=== PATIENT | female | born 1960 | race Caucasian/White ===

== ENCOUNTER 2016-10-17 09:30 | Inpatient (IN) ==
[2016-10-17 10:34] LABS: BILIRUBIN URINE NEGATIVE (NEGATIVE); BLOOD URINE NEGATIVE (NEGATIVE); CLARITY CLEAR (CLEAR); COLOR YELLOW; GLUCOSE URINE NEGATIVE (NEGATIVE); LEUKOCYTES URINE 1+ (NEGATIVE); NITRITE URINE NEGATIVE (NEGATIVE); UROBILINOGEN URINE NORMAL
[2016-10-17 10:34] LABS: MANUAL DIFF NEEDED? NO
[2016-10-17 10:35] LABS: BASO% 0.2 % (0.0-0.8); EOS% 0.7 % (0.0-10.0); HEMATOCRIT 46.1 % (37.0-47.0); HEMOGLOBIN 15.9 g/dL (12.0-16.0); IMM GRAN# 0.05 X1000 (0.0-0.04); IMM GRAN% 0.3 % (0.0-0.5); LYMPH# 1.83 X1000 (1.2-3.4); LYMPH% 12.1 % (20.5-51.1); MCH 30.2 PG (27-31); MCHC 34.5 g/dL (33-37); MCV 87.6 FL (81-99); MONO# 1.27 X1000 (0.11-0.59); MONO% 8.4 % (1.7-9.3); MPV 10.3 FL (7.4-10.4); NEUT% 78.3 % (42.2-75.2); PLT 263 X1000 (130-400); RBC 5.26 XMIL (4.2-5.4)
[2016-10-17 10:43] LABS: URINE CULTURE PL NEEDED? YES; URINE EPITHELIAL CELLS <10 /HPF (<10); URINE SOURCE CLEAN CATCH; URINE WBC <10 /HPF (<10)
[2016-10-17 11:01] LABS: AGAP 12; ALBUMIN 4.7 g/dL (3.5-5.0); ALKALINE PHOSPHATASE 128 U/L (32-104); BUN 13 mg/dL (8-22); CALCIUM 10.2 mg/dL (8.8-10.2); CHLORIDE 99 mmol/L (98-107); COSMO 281; GOT 13 U/L (10-30); GPT 15 U/L (10-36); LIPASE 17 U/L (13-60); SODIUM 141 mmol/L (136-145); TCO2 30 mmol/L (25-35); TOTAL PROTEIN 6.9 g/dL (6.3-8.3)
--- NOTE | 2016-10-17 11:32 | Diag Imaging Result Doc PS360 ---
EXAM: FLAT/UPRIGHT ABD/1 VIEW CHEST HISTORY: abd pain TECHNIQUE: Four views COMPARISON: 09/26/2016 FINDINGS: The lungs are well expanded. No cardiomegaly. No pneumonia. No free air beneath the diaphragm. There are air distended loops of small bowel in the mid abdomen. Air-fluid levels are present. Stool is found in the colon. No organomegaly. Mild scoliosis. IMPRESSION: Early or partial small bowel obstruction. Electronically signed by Kvng Bradley 10/17/2016 11:29 AM
[2016-10-17] MEDS ORDERED: PHENERGAN IV ONE (11:50)
[2016-10-17] MEDS ORDERED: SODIUM CHLORIDE 0.9% INJ ONE (11:50)
[2016-10-17] MEDS ORDERED: MORPHINE IV ONE (11:50)
--- NOTE | 2016-10-17 13:01 | Diag Imaging Result Doc PS360 ---
EXAM: CT ABD/PELVIS W/ IV CONT ONLY HISTORY: SBO TECHNIQUE: COMPARISON: 07/02/2013 FINDINGS: There is fatty infiltration of the liver. Normal spleen and pancreas. No calcified gallstones or adjacent inflammation. Enlarged right adrenal gland measuring 2.0 x 3.4 cm. This is unchanged from the prior study. Enlarged left adrenal gland measures 1.8 x 2.7 cm and is also unchanged. Normal enhancement of the kidneys. No hydronephrosis. There are multiple air and fluid distended small bowel loops in the mid abdomen. The terminal ileum is not distended. Normal appendix. No abscess. There are scattered diverticula. Urinary bladder is moderately distended and appears normal. There is a moderate amount of free fluid within the pelvis. The uterus is been removed. No pelvic mass. There are small mesenteric lymph nodes. IMPRESSION: 1.Early or partial small bowel obstruction 2.Fatty infiltration of the liver 3.Stable enlarged adrenal glands 4.Diverticulosis 5.Hysterectomy. Free fluid in the pelvis. Electronically signed by Kvng Bradley 10/17/2016 12:59 PM
[2016-10-17] MEDS ORDERED: NICODERM PATCH ONE (13:18)
[2016-10-17] MEDS ORDERED: NICODERM PATCH TD ONE (13:18)
[2016-10-17] MEDS ORDERED: ZOFRAN IV PRN ×2 (14:04→17:04)
[2016-10-17] MEDS ORDERED: MORPHINE IV PRN (14:04)
[2016-10-17] MEDS ORDERED: TYLENOL PO PRN (14:04)
--- NOTE | 2016-10-17 14:28 | CONSULTATION ---
DATE OF CONSULTATION: 10/17/2016 REQUESTING PHYSICIANS: Emergency Department. REASON FOR CONSULTATION: Consult concerning partial small bowel obstruction. HISTORY OF PRESENT ILLNESS: A 56-year-old, female presenting to the emergency department with complaints of generalized abdominal pain x10 hours. She states she has never had pain like this before. Upon further questioning, she has had previous diagnosis of a hiatal hernia but no other problems besides chronic constipation. She has been seen by Dr. Choudhary and had her last colonoscopy in 2014 which by report from the patient was essentially uneventful. She denies any kind of nausea and had a small bowel movement this morning, but she said she has had to take laxatives every night to have a bowel movement. She says her pain is much better since she was admitted to the emergency department and started with IV fluids and pain medicine. It is not specifically tender this morning. She denies camping, drinking out of well water or any new diets, any abnormal food intake or sick people interaction. PAST MEDICAL HISTORY: Diabetes, hypertension, gastric ulcer. PAST SURGICAL HISTORY: Previous melanoma removal, hysterectomy, tonsillectomy. CURRENT MEDICATIONS: 1. Gabapentin. 2. Insulin. Remainder medications reviewed. ALLERGIES: None. SOCIAL HISTORY: Patient is a current smoker. FAMILY HISTORY: Reviewed and noncontributory. REVIEW OF SYSTEMS: A full 10-point review of systems obtained, negative as specified in HPI. PHYSICAL EXAMINATION: Vital Signs: Patient is currently afebrile. Her vital signs are stable. She is mildly tachycardic at 105 reported. General: No acute distress. Resting comfortably. HEENT: Normocephalic, atraumatic. Pupils equal, round, reactive to light. Mucous membranes moist. Oropharynx benign. Neck: Supple. Trachea midline. Cardiovascular: Regular rate and rhythm. Lungs: Grossly clear. Abdomen: Protuberant but soft. No peritoneal signs. No significant tenderness on this time. Extremities: Moves all extremities. Neurologic: Grossly intact. Skin: No signs of jaundice. Vascular: All extremities perfused. LABORATORY: White blood cell count is 15. Remainder of labs reviewed. She does have some protein in her urine. CT scan independently reviewed and radiology report reviewed. She has what appears to be a partial small bowel obstruction versus enteritis-like picture. ASSESSMENT AND PLAN: A 56-year-old, female, with multiple medical comorbidities now with a partial small bowel obstruction. 1. Multiple medical comorbidities. At this time, to be managed by the hospitalist service. She is to be admitted. 2. Partial small bowel obstruction. At this time, patient does not have a physical exam consistent with any kind of compromised bowel. This might even be a gastroenteritis-like picture. At this point, I recommend following her and getting a flat and upright in the morning. I would agree with admission with resuscitation with IV fluids and keep her n.p.o. for right now and maybe consider start a diet tomorrow. cc: Jaswant Payne MD
--- NOTE | 2016-10-17 14:37 | HISTORY AND PHYSICAL ---
PRIMARY CARE PHYSICIAN: El Forrest MD CHIEF COMPLAIN OF: Abdominal pain for the past 10 hours. HISTORY OF PRESENTING ILLNESS: This is a 56-year-old female who presents to [facility] ER with complaints of left-sided primary abdominal pain. States that the pain woke her up approximately 10 hours ago and states that she has problems with constipation that are chronic. She took a laxative last night, but this morning he had a runny- type bowel movements. She continued having pain. She came to the emergency room for evaluation. On arrival, her workup showed a white blood cell count of 15.12. Her abdomen x- ray showed an early or partial small bowel obstruction. The abdomen and pelvis CT was obtained that showed an early or partial small bowel obstruction fatty infiltration of the liver. So, she will be admitted for further evaluation and treatment. PAST MEDICAL HISTORY: Stomach ulcers, chronic constipation and hypertension, diabetes type 2. PAST SURGICAL HISTORY: Tonsillectomy and hysterectomy. FAMILY HISTORY: Noncontributory. SOCIAL HISTORY: She currently lives with family. Smokes 1 pack of cigarettes a day and has done so for the past 30 years and denied any alcohol or illicit drug use. ALLERGIES: She has no known drug allergies. HOME MEDICATIONS: Buspirone 15 mg p.o. daily. Gabapentin 600 mg p.o. daily. We need to verify her Lantus dosage. Thioridazine 100 mg p.o. daily. All will be held at this time. LABORATORY DATA: Showed a white blood cell count of 15.12, hemoglobin 15.9, hematocrit 46.1, platelets 263,000. Sodium 141, potassium 4, chloride 99, CO2 30, BUN of 13, creatinine of 0.8, glucose 95, lipase of 17. Urinalysis was negative. IMAGING: Abdomen x-ray showed an early or partial small bowel obstruction. Abdomen and pelvis CT showed early or partial small bowel obstruction, fatty infiltration of the liver and diverticulosis. REVIEW OF SYSTEMS: She denied any fever, chills, blurred vision, dizziness, chest pain, coughing, shortness of breath. She was positive for abdominal pain. It is primarily left -sided, but is somewhat general also. Constipation with a small amount of diarrhea this a.m. Denied any burning or hurting with urination. PHYSICAL EXAMINATION: VITAL SIGNS: On arrival, she had a temperature of 98 degrees, a pulse of 105, respirations 18, blood pressure 167/103, saturating 95% on room air. GENERAL: This is a 56-year-old female who is lying in the bed and answers questions appropriately. HEENT: Normocephalic and atraumatic. Pupils are equal, round, reactive to light. Extraocular movements are intact. The oropharynx and nares are clear. NECK: Supple. LUNGS: Clear to auscultation bilaterally with equal lung expansion and chest wall movement. HEART: With regular rate and rhythm. No murmurs, rubs, or gallops. ABDOMEN: Soft, distended. Bowel sounds are hypoactive. There is tenderness to palpation to the entire abdomen, but more so on her left lower quadrant. EXTREMITIES: No clubbing, cyanosis, or edema. NEUROLOGICAL: The cranial nerves 2-12 appear grossly intact. ASSESSMENT: 1. Partial small bowel obstruction. 2. Leukocytosis. 3. Hypertension. 4. Tobacco abuse. PLAN: She will be admitted to the Medical Unit at [place] and placed on telemetry, nothing per oral. We consulted Surgery. We will recheck a CBC and CMP in the a.m. We will place on normal saline at 100 mL an hour. Give Zofran 4 mg IV q.4 hours p.r.n. Hold all her home medications at this time. I think the elevation in her white blood cell count is most likely reactive, but we will follow that. Dictated by OMARI Bill for Angel Varela MD cc: OMARI Bill MD Bharat K. Vakharia, MD I have seen and examined the patient and I agree with the above evaluation and care plan partial SBO surgery has been notified I discussed it with Dr Payne. Medical approach for now. BRENT
[2016-10-17] MEDS ORDERED: NS 1,000 ML IV SCH (17:04)
[2016-10-17] MEDS ORDERED: D50W SYRINGE IV ONE (18:50)
[2016-10-17] MEDS: D5 1/2 NS 1,000 ML IV SCH (20:00)
[2016-10-17] MEDS: DEMEROL IV PRN (21:36)
[2016-10-18] MEDS: DEMEROL IV PRN ×2 (03:57→07:45)
[2016-10-18 06:05] LABS: MANUAL DIFF NEEDED? NO
[2016-10-18 06:15] LABS: BASO% 0.2 % (0.0-0.8); EOS# 0.16 X1000 (0.0-0.7); EOS% 1.3 % (0.0-10.0); HEMATOCRIT 43.4 % (37.0-47.0); HEMOGLOBIN 14.2 g/dL (12.0-16.0); IMM GRAN# 0.03 X1000 (0.0-0.04); IMM GRAN% 0.2 % (0.0-0.5); LYMPH# 2.48 X1000 (1.2-3.4); LYMPH% 19.8 % (20.5-51.1); MCH 29.3 PG (27-31); MCHC 32.7 g/dL (33-37); MCV 89.5 FL (81-99); MONO# 0.98 X1000 (0.11-0.59); MONO% 7.8 % (1.7-9.3); MPV 10.6 FL (7.4-10.4); NEUT% 70.7 % (42.2-75.2); PLT 272 X1000 (130-400); RBC 4.85 XMIL (4.2-5.4)
[2016-10-18 06:40] LABS: AGAP 10; ALBUMIN 4.3 g/dL (3.5-5.0); ALKALINE PHOSPHATASE 119 U/L (32-104); BUN 9 mg/dL (8-22); CALCIUM 9.8 mg/dL (8.8-10.2); CHLORIDE 102 mmol/L (98-107); COSMO 280; GOT 11 U/L (10-30); GPT 12 U/L (10-36); POTASSIUM 3.8 mmol/L (3.5-5.1); SODIUM 141 mmol/L (136-145); TCO2 28 mmol/L (25-35)
--- NOTE | 2016-10-18 08:17 | Diag Imaging Result Doc PS360 ---
EXAM: ABDOMEN FLAT/UPRIGHT HISTORY: SBO TECHNIQUE: Two views COMPARISON: 10/17/2016 FINDINGS: Supine and erect views of the abdomen reveal distended small bowel loops in the mid abdomen improved from the prior study. There is gas throughout nondistended colon. Distal gas is present. No free air is appreciated. IMPRESSION: Improving early or partial mechanical small bowel obstruction. Electronically signed by Emily Lacey 10/18/2016 8:15 AM
[2016-10-18] MEDS: D5 1/2 NS 1,000 ML IV SCH (09:08)
[2016-10-18] MEDS ORDERED: LINZESS PO ONE (15:10)
[2016-10-18] MEDS ORDERED: RELISTOR SUBQ ONE (15:11)
[2016-10-18] MEDS ORDERED: NICODERM PATCH TD PRN (15:17)
[2016-10-18] MEDS: NICODERM PATCH TD SCH (15:43)
--- NOTE | 2016-10-18 15:43 | PROGRESS NOTE ---
DATE: 10/18/2016 SUBJECTIVE: Patient doing okay. Pain is improved. She is tolerating a clear liquid diet. She is having a small amount of flatus and a small bowel movement. OBJECTIVE: Vital Signs: Patient is currently afebrile. Her vital signs are stable. General Examination: No acute distress. HEENT: Normocephalic, atraumatic. Pupils are equal, round, reactive to light. Mucous membranes moist. Oropharynx benign. Neck: Supple. Trachea midline. Cardiovascular: Regular rate and rhythm. Lungs: Grossly clear. Abdomen: Soft, protuberant. She is less tender to palpation than she was previously. No peritoneal signs. LABORATORY: White blood cell count is 12 which is down from 15. Remainder of labs are reviewed. Abdominal film reviewed. Improving pattern overall. ASSESSMENT AND PLAN: A 56-year-old, female with improving small bowel obstruction. Small bowel obstruction: At this time patient seems to be making clinical improvement. She was started on a clear liquid diet. Likely we will just be able to monitor her and hopefully get her out in the next 24-48 hours. I suspect this might be related to a viral illness or chronic constipation. cc: Jaswant Payne MD
--- NOTE | 2016-10-18 15:46 | PROGRESS NOTE ---
DATE: 10/18/2016 SUBJECTIVE: Today, Ms. Palm refers to be doing a lot better. She says she had some mild bowel movement. No more abdominal pain and no vomiting, no nausea. She is tolerating a clear liquid diet. OBJECTIVE: Vital signs: Blood pressure is 151/84, pulse of 90, respirations 18, temperature is 98.7 degrees. General: Ms. Palm is a 56-year-old female. She is in bed, not seeming in distress. HEENT: Mucosa is pink and moist. Anicteric. Acyanotic. Neck: Supple. Chest: Good air entry bilaterally. No crepitations. No rhonchi. Cardiovascular: Regular rate and rhythm. Abdomen: Soft. It is slightly distended, but nontender. Bowel sounds are reduced. Extremities: No pedal edema. Central Nervous System: Patient is awake, alert, and oriented. LABORATORY AND IMAGING DATA: WBC is 12.54, hemoglobin is 14.2, platelet count is 272,000. Chemistry was reviewed and completely normal. Abdominal x-ray this morning shows improving early or partial mechanical small-bowel obstruction. ASSESSMENT: 1. Partial small-bowel obstruction. 2. Chronic constipation. 3. Hypertension. 4. History of bipolar. 5. Tobacco abuse. 6. Obesity with BMI of 33.6. So, today Ms. Palm is doing a little better. We are going to continue with the current IV fluids and the clear liquid diet. I will give her a dose of methylnaltrexone, since patient has been on opioid medications for a while. We will also start her on a bowel prep regimen with MiraLAX and Linzess. hopefully, we can get her bowels to move today. We will repeat her x-ray for tomorrow morning. If she is doing a lot better, we will be able to discharge her tomorrow. I am also checking her TSH to make sure she does not have underlying hypothyroidism. cc: Angel Varela MD
[2016-10-18] MEDS: BUSPAR PO SCH (16:34)
[2016-10-18] MEDS: NEURONTIN PO SCH (16:35)
[2016-10-18] MEDS: MIRALAX PO SCH (20:59)
[2016-10-18] MEDS ORDERED: MELLARIL PO SCH (21:00)
[2016-10-18] MEDS ORDERED: THIORIDAZINE HCL PO SCH (21:00)
[2016-10-19] MEDS ORDERED: LINZESS PO SCH (07:00)
[2016-10-19] MEDS ORDERED: PRILOSEC PO SCH (07:00)
--- NOTE | 2016-10-19 08:00 | PROGRESS NOTE ---
DATE: 10/19/2016 SUBJECTIVE: Patient doing okay. Pain is improved. She tolerated a clear liquid diet. She did pass multiple bowel movements. She said that she is feeling back to herself. OBJECTIVE: Vital Signs: Patient is currently afebrile. Her vital signs are stable. General Examination: No acute distress. HEENT: Normocephalic and atraumatic. Pupils are equal, round, and react to light. Mucous membranes moist. Oropharynx benign. Neck: Supple. Trachea midline. Cardiovascular: Regular rate and rhythm. Lungs: Grossly clear. Abdomen: Soft, protuberant but nontender. No peritoneal signs. Laboratory Data: Laboratory reviewed. Abdominal films, none today. ASSESSMENT AND PLAN: A 56-year-old, female with improving small-bowel obstruction. Small bowel obstruction. At this time, I will advance her to a regular diet. I suspect that this is related to constipation or a viral pattern. The patient probably, given her chronic constipation, needs to stay on MiraLAX long-term. I think she can likely be discharged today. cc: Jaswant Payne MD
[2016-10-19] MEDS ORDERED: WELLBUTRIN XL PO SCH (09:00)
[2016-10-19] MEDS: NEURONTIN PO SCH ×2 (09:50→12:55)
[2016-10-19] MEDS: NICODERM PATCH TD SCH (09:50)
[2016-10-19] MEDS: BUSPAR PO SCH ×2 (09:51→12:55)
[2016-10-19] MEDS: MIRALAX PO SCH (09:51)
--- NOTE | 2016-10-19 11:34 | Diag Imaging Result Doc PS360 ---
EXAM: ABDOMEN FLAT/UPRIGHT HISTORY: abd pain/ SBO TECHNIQUE: Flat and upright abdomen COMMENT: There is gas throughout the colon. There is no evidence of small bowel or gastric distention. No evidence organomegaly or mass is present. Compared to 10/18/2016 there is less small bowel gas. IMPRESSION: The possibility of mild ileus cannot be excluded. Improved dilatation of the small bowel seen on 10/18/2016. Electronically signed by Errol Hahn 10/19/2016 11:32 AM
[2016-10-19 13:31] VITALS: BP 137/77
--- NOTE | 2016-10-19 16:33 | DISCHARGE SUMMARY ---
ADMISSION DATE: 10/17/2016 DISCHARGE DATE: 10/19/2016 DISPOSITION: Home. FOLLOWUP: Followup will be with her PCP, Dr. El Forrest. INVASIVE PROCEDURE DONE DURING THIS ADMISSION: None. IMAGING STUDIES OF SIGNIFICANCE.: CT scan of the abdomen and pelvic was done that shows early or partial small bowel obstruction. Fatty infiltration of the liver. Stable enlarged adrenal glands. ADMISSION DIAGNOSES: 1. Partial small bowel obstruction. 2. Leukocytosis. 3. Hypertension. 4. Tobacco abuse. DIAGNOSIS AT THE TIME OF DISCHARGE: 1. Partial small bowel obstruction. 2. Chronic constipation. 3. Hypertension. 4. History of bipolar. 5. Tobacco abuse. 6. Obesity with BMI. 7. Smoking cessation was offered. DISCHARGE MEDICATIONS: 1. Thioridazine 200 mg at bedtime. 2. Gemfibrozil. 3. Gabapentin 200 three times per day. 4. Metformin 500 daily. 5. Omeprazole 1 tablet daily. 6. Losartan 50 mg daily. 7. Insulin Lantus 76 subcutaneously daily. 8. Linzess 145 mcg daily. 9. MiraLAX 17 g b.i.d. CONSULTATION DURING THIS ADMISSION: Surgery was consulted. The patient was seen by Dr. Payne. INVASIVE INTERVENTION: None. PRESENTING COMPLAINT: Abdominal pain. HISTORY OF PRESENTING COMPLAINT: Ms. Palm is a 56-year-old female, who presented to the emergency department because of 10-hour history of abdominal pain. The patient was evaluated and a CT scan did show some partial or early small bowel obstruction. Patient was admitted for medical care. HOSPITAL STAY: The patient did pretty well. Was evaluated by surgery who recommended only medical therapy. The patient was adequately hydrated. Subsequently, she was able to tolerate her diet and medications were given for constipation. She was able to have about 3 bowel movements on the day of discharge. A repeat x-ray shows remarkable improvement and gas distribution. Patient is doing fine. She has no more abdominal pain. She is, therefore, going to be discharged. She is going to go home on medications for chronic constipation, and she is supposed to follow up with her primary inhalation therapy aides teacher, Dr. Choudhary. At the time of discharge, there are no pending labs or imaging studies. TIME SPENT FOR DISCHARGE: 35 minutes. cc: Angel Varela MD
--- NOTE | 2016-10-30 01:14 | PROVIDER DOCUMENTATION ---
This chart was entered by Linh Garcia Scribe, acting as scribe for Selene Ma PA. HPI-Abdominal Pain/GI Problem - General Chief Complaint: Abdominal Pain Stated Complaint: ABD PAIN Time Seen by Provider: 10/17/16 09:58 Source: patient Allergies/Adverse Reactions: Patient Allergies Allergy/AdvReac Type Severity Reaction Status Date / Time carbamazepine [From Tegretol] Allergy RASH Verified 10/17/16 15:08 Home Medications: Home Medication List Medication Instructions Recorded Confirmed Last Taken Type Bupropion HCl [Bupropion Xl] 1 tab PO DAILY 10/17/16 10/17/16 Unknown History Buspirone HCl [Buspirone HCl] 1 tab PO TID 10/17/16 10/17/16 Unknown History Gabapentin 200 mg PO TID 10/17/16 10/17/16 Unknown History Gemfibrozil [Lopid] 1 tab PO DAILY 10/17/16 10/17/16 Unknown History Insulin Glargine [Lantus] 76 units SQ AC 10/17/16 10/17/16 Unknown History Losartan Potassium 1 tab PO HS 10/17/16 10/17/16 Unknown History Metformin HCl [Metformin HCl ER] 1 tab PO DAILY 10/17/16 10/17/16 Unknown History Montelukast Sodium 1 tab PO DAILY 10/17/16 10/17/16 Unknown History Omeprazole 1 tab PO DAILY 10/17/16 10/17/16 Unknown History Thioridazine HCl 200 mg PO HS 10/17/16 10/17/16 Unknown History Linaclotide [Linzess] 145 mcg PO DAILY@0700 #30 capsule 10/19/16 Unknown Rx Polyethylene Glycol 3350 [Miralax] 17 gm PO BID #60 powder, packet 10/19/16 Unknown Rx - History of Present Illness-ABD Nature of Presenting Problems: 56 yo F presents to the ER with complaint of generalized abdominal pain, onset x10 hours ago. States the pain woke her up. Typically can take a prylosec and it will relieve the pain. Has a hx of stomach ulcers but states this does not feel similar to that pain. Denies any vomiting or diarrhea. Has hx of chronic constipation, took laxative last night and only had a small BM this morning. Abdominal Pain Onset Location: reports: generalized abdomen Pain Radiation: reports: back Onset/Duration: reports: last night Activities at Onset: reports: sleep Associated Symptoms: reports: nausea. denies: diarrhea, vomiting Last BM: this morning Dark Stools Present?: reports: none noticed Rectal Bleeding: reports: none Rectal Pain: reports: none Emesis Description: reports: none Review of Systems - Adult - REVIEW OF SYSTEMS - ADULT Constitutional: denies: chills, fever Eyes: reports: no symptoms reported Ears, Nose, Mouth & Throat: reports: no symptoms reported Cardiovascular: denies: chest pain, palpitations Respiratory: denies: cough, shortness of breath Gastrointestinal: reports: abdominal pain, constipation, nausea. denies: diarrhea, vomiting Genitourinary: reports: no symptoms reported Musculoskeletal: reports: no symptoms reported Integumentary: reports: no symptoms reported Neurological: reports: no symptoms reported Psychiatric: reports: no symptoms reported Endocrine: reports: no symptoms reported Hematologic/Lymphatic: reports: no symptoms reported Allergic/Immunologic: reports: no symptoms reported All Other Systems: Reviewed and Negative Past History - Adult - PAST MEDICAL HISTORY-ADULT Review of Records: reports: Nursing Assessment Review, Medications Reviewed Cardiovascular: reports: HTN Gastrointestinal: reports: ulcer - PRIOR SURGERIES/PROCEDURES Surgical/Procedure History: reports: hysterectomy, tonsillectomy - IMMUNIZATION STATUS Childhood Immunizations: See Nurse Assessment Flu Vaccine: See Nurse Assessment - SOCIAL HISTORY Smoking: greater than 1 pack/day Provider spent 3-5 mins advising pt. on dangers of tobacco.: Discussed manners to quit use, and f/u contacts for add'l counseling. Physical Exam-General - PHYSICAL EXAM-ADULT Initial Vital Signs Reviewed: Yes - CONSTITUTIONAL General Appearance: appears well, alert, no apparent distress - EYES Eyes: PERRL/EOMI, pink conjunctivae - HEAD, EARS, NOSE, MOUTH & THROAT HENMT: normocephalic/atraumatic, moist mucous membranes - RESPIRATORY Respiratory: chest non-tender, lungs clear, normal breath sounds. negative: crackles, rales, rhonchi, stridor, wheezing - CARDIOVASCULAR Cardiovascular: regular rate, rhythm, no edema - GASTROINTESTINAL (ABDOMEN) Abdominal Exam: normal bowel sounds, distended (protuberant abdomen), tenderness (epigastric), hernia (states she has a hernia but abdomen is so protuberant unable to palpate defect in abdominal wall), other (unable to palpated organomegaly due to protuberant abdomen). negative: guarding, rigid, rebound, mass - MUSCULOSKELETAL Back Exam: normal inspection, no CVA tenderness, no vertebral tenderness Extremity: normal gait, normal inspection, no pedal edema - SKIN Integumentary: normal color, normal turgor, warm/dry. negative: rash - NEUROLOGIC Neurologic: grossly normal, no motor/sensory deficits - PSYCHIATRIC Psych/Mental Status: normal thought content, normal thought process Progress - PLAN OF CARE/RESULTS Progress/Plan/Lab Results: Vital Signs - 8 hr 10/17/16 09:46 Temperature 98 F Pulse Rate 105 H Respiratory Rate 18 Blood Pressure 167/103 O2 Sat by Pulse Oximetry 95 Discussed abnormal abd x-ray that shows SBO and the need for CT and admission. Answered all questions about admission and possible surgery in words pt and family could understand. Result Diagrams: 10/18/16 05:52 10/18/16 05:52 - XRAY 1 XRAY Study: Chest, Abdomen Impression: Abnormal (early or partial small bowel obstruction, per radiologist) - CT/MRI 1 CT Study: Abdomen, Pelvis Impression: Abnormal, See EMR Report CT Results: small bowel obstruction - CONSULTS/PCP/HOSPITALIST Notification #1 *Consult/PCP/Hospitalist*: [place] Time Discussed: 13:35 #2 Consult: Figh Time Discussed: 13:41 Consult Disposition: Will see in ED Departure - Departure Date of Disposition Decision: 10/17/16 Time of Disposition Decision: 13:40 DIAGNOSIS: Partial small bowel obstruction Disposition: ADMITTED INPATIENT 09 Certified Medical Emergency: Emergent Condition: Stable - Critical Care Note This patient required my direct & personal management of CC.: No Attestation - Physician/ KELECHI Attestation Patient care was provided by Advanced Practice Provider:: Yes Advanced Practice Provider:: Selene Ma Advanced Practice Provider documentation review:: The Mid-level provider documentation, treatment plan and medical decision making was reviewed by the physician who agrees with all treatment and medical decision making by the MLP. This chart was documented by the indicated scribe, (Linh Garcia Scribe) and accurately reflects the services I performed and decisions made by me, Selene Ma PA, as attested by the provider's signature.
== END 2016-10-19 13:34 | disposition home or self-care (01) ==
LOC: P.MEDSURG 09:30 → P.ED 09:30 → SUATTDRO 15:25 → OBSVTOIN 15:25
PROVIDERS: ATTEND Internal Medicine